=== PATIENT | male | born 2000 | race Caucasian/White ===

== ENCOUNTER 2018-02-09 09:23 | Inpatient (IN) | payer SELFPAY ==
[2018-02-09 09:54] LABS: #Eosinphils 0.1 thou/uL (0.0-0.7); #Lymphocytes 1.7 thou/uL (1.20-3.40); #Monocytes 1.3 thou/uL (0.11-0.59); #Neutrophils 15.3 thou/uL (1.40-6.50); %Basophils 0.1 % (0.0-1.0); %Eosinophils 0.4 % (0.0-10.0); %Lymphocytes 9.2 % (28.0-48.0); %Monocytes 6.9 % (0.0-4.0); %Neutrophils 83.4 % (31.0-61.0); Hemoglobin 13.7 g/dL (14.0-18.0); Mean Corpuscular HGB CONC 34.2 g/dL (32.0-36.0); Mean Corpuscular Hemoglobin 28.3 pg (25.0-35.0); Mean Corpuscular Volume 82.8 fL (78.0-98.0); Mean Platelet Volume 7.8 fL (7.4-10.4); Platelet Count 249 thou/uL (130-400); RBC Distribution Width 13.1 % (11.5-14.5); Red Blood Cell (RBC) Count 4.86 mill/uL (4.00-5.20); White Blood Cell (WBC) Count 18.3 thou/uL (4.8-10.8)
[2018-02-09 10:17] LABS: ALT (SGPT) 38 U/L (8-55); AST (SGOT) 21 U/L (10-45); Alkaline Phosphatase 74 U/L (Less than 750); Anion Gap 13 mmol/L (10-20); BUN (Urea Nitrogen) 8 mg/dL (8.4-21.0); Bilirubin, Total 0.9 mg/dL (0.2-1.2); CK (CPK) 49 U/L (30-200); Calc. Creatinine Clearance 0 mL/min (70-130); Calcium 9.2 mg/dL (7.8-10.44); Carbon Dioxide 22 mmol/L (22-29); Chloride 105 mmol/L (98-107); Estimated GFR-MDRD Greater than 90; Globulin 4.5 g/dL (2.4-3.5); Glucose 100 mg/dL (70-105); Potassium 3.7 mmol/L (3.5-5.1); Protein, Total 8.5 g/dL (6.0-8.3); Sodium 136 mmol/L (136-145)
[2018-02-09] MEDS ORDERED: Piperacillin/Tazobactam 4.5 GM VIAL ONE (10:32)
--- NOTE | 2018-02-09 10:41 | RAD ---
ONE VIEW CHEST: HISTORY: Palpitation. COMPARISON: None. FINDINGS: Normal cardiac silhouette. The lungs and pleural spaces are clear. No pneumothorax or osseous abnor malities. IMPRESSION: No acute cardiopulmonary process. POS: [facility]
[2018-02-09] MEDS ORDERED: Acetaminophen 325 MG TAB ONE (12:00)
--- NOTE | 2018-02-09 12:06 | ULT ---
VENOUS DUPLEX SONOGRAM BILATERAL LOWER EXTREMITY: HISTORY: Bilateral leg pain and edema. FINDINGS: Each common femoral vein and greater saphenous junction were evaluated along with each femoral, deep femoral, popliteal, and posterior tibial vein. There is good color and spectral Doppler flow and com pression. IMPRESSION: No sonographic evidence of deep vein thrombosis within either lower extremity. POS: [facility]
[2018-02-09] MEDS ORDERED: Senokot S 8.6-50 MG TAB PO PRN (13:20)
[2018-02-09] MEDS ORDERED: Acetaminophen 325 MG TAB PO PRN (13:20)
[2018-02-09] MEDS: Sodium Chloride 0.9% 1,000 ML IV SCH (13:50)
[2018-02-09 15:03] LABS: Lactic Acid 1.4 mmol/L (0.5-2.2)
[2018-02-09] MEDS ORDERED: Clotrimazole 1 % Cream 30 GM TUBE TOP SCH (15:30)
[2018-02-09 16:22] LABS: Troponin I Less than 0.010 ng/mL (< 0.028)
[2018-02-09] MEDS: Piperacillin/Tazobactam 3.375 GM in Sodium Chloride 0.9% 100 ML IVPB SCH ×2 (17:16→23:21)
[2018-02-09] MEDS ORDERED: Vancomycin HCl 2.5 GM in Sodium Chloride 0.9% 500 ML IVPB SCH (18:00)
[2018-02-09 19:29] LABS: Troponin I Less than 0.010 ng/mL (< 0.028)
[2018-02-09] MEDS ORDERED: Vancomycin HCl 1 GM in Premix Bag 1 BAG IVPB SCH (21:00)
[2018-02-09] MEDS: Clotrimazole 1 % Cream 30 GM TUBE TOP SCH (23:23)
--- NOTE | 2018-02-09 23:47 | HP ---
CHIEF COMPLAINT: Dizziness and worsening lower extremity erythema. HISTORY OF PRESENT ILLNESS: The patient is a 17-year-old obese male who presents to the hospital with multiple complaints. The patient states that he woke up this morning, felt very warm followed by had some dizziness and then felt that his heart racing very fast. The patient stated that he has been recently treated about 2 weeks ago with lower extremity cellulitis. The patient states that this year he has had two episodes of bilateral lower extremity cellulitis and has been treated with the same antibiotic. The patient states that he has noticed worsening swelling of his lower extremities. The patient came to the ER since he did have some palpitations and also some dizziness. In the ED when he came, he was found to be in sinus tach at 120. The patient was also found to have elevated leukocytosis with some elevated lactic acid and at this time, he was admitted into the hospital for possible sepsis. PAST MEDICAL HISTORY: The patient denies any surgical history. SOCIAL HISTORY: He denies any smoking, alcohol, or drug use. He is a full code. Lives with his parents. REVIEW OF SYSTEMS: All negative except for the ones mentioned above in the HPI. PHYSICAL EXAMINATION: VITAL SIGNS: As of the following; temperature of 99.1, heart rate of 115, respirations are 20, and blood pressure 122/64. GENERAL: He is awake, alert, and oriented x3. Does not appear in distress. CV: S1, S2 present. Tachycardia is noted, however, regular. LUNGS: Clear to auscultation. No rhonchi or wheezes noted. ABDOMEN: Soft. Bowel sounds are present x2. No pain upon palpation. EXTREMITIES: Lower extremity edema. He does have significant erythema greater on left leg compared to right. He does have significant tinea pedis. The patient's bilateral great toenails are very cursed and has significant amount of dirt in them and also has significant amount of fungal infection that is noted on bilateral feet area. His bilateral legs appear to be warm to touch and significant erythema on the left compared to the right. Pedal pulses are present bilaterally. There is no warmth around the bilateral knee area. NEUROVASCULAR: No focal deficits noted. SKIN: As I mentioned has significant erythema to the left greater than the right, and also has some fungal tinea pedis noted to bilateral feet area with bilateral great toe appear to have a significant amount of dirt around them. FAMILY HISTORY: No history of heart disease or cancer. LABORATORY DATA: Sodium of 136, potassium of 3.7, BUN of 8, and creatinine 0.90. Troponin x2 were negative. Lactic acid was initially 3.9 and 1.4. WBC is 18.3, hemoglobin of 13.7, hematocrit of 40.2, and platelets of 249. There are no bands seen. He did have a venogram, which was negative for any deep vein thrombosis. ASSESSMENT AND PLAN: The patient is a very pleasant 17-year-old male who presents to the hospital with complaints of tachycardia and also was found to have sepsis. 1. Sepsis, possible from bilateral lower extremity cellulitis. The patient stated that he has been treated about 2 weeks ago with antibiotics; however, he does not recall the name of the antibiotic. He has had this infection this year twice already and has been treated with the same antibiotic per the patient. I tried to reach his mother; however, I was unable to. I will put him on some vancomycin and Zosyn for now. Also, we will start him on some gentle hydration. I have also ordered clotrimazole topical cream for his fungal infection. 2. Sinus tachycardia. The patient did have some palpitation. I am not sure if this is secondary to his infection. The patient states that he has had this event before. May consider getting an echocardiogram. 3. The patient is obese. May probably even require sleep study as an outpatient. However, EKG did not indicate any acute abnormalities, just sinus tach and troponins x2 were negative. 4. Deep venous thrombosis prophylaxis. We will put the patient on Lovenox. Job ID: [id number]
[2018-02-10] MEDS: Piperacillin/Tazobactam 3.375 GM in Sodium Chloride 0.9% 100 ML IVPB SCH ×4 (05:33→23:33)
[2018-02-10] MEDS: Sodium Chloride 0.9% 1,000 ML IV SCH (05:34)
[2018-02-10 07:08] LABS: #Eosinphils 0.1 thou/uL (0.0-0.7); #Lymphocytes 1.4 thou/uL (1.20-3.40); #Monocytes 1.2 thou/uL (0.11-0.59); #Neutrophils 5.6 thou/uL (1.40-6.50); %Basophils 0.3 % (0.0-1.0); %Eosinophils 1.2 % (0.0-10.0); %Lymphocytes 17.3 % (28.0-48.0); %Monocytes 13.8 % (0.0-4.0); %Neutrophils 67.3 % (31.0-61.0); Mean Corpuscular HGB CONC 34.2 g/dL (32.0-36.0); Mean Corpuscular Hemoglobin 28.8 pg (25.0-35.0); Mean Corpuscular Volume 84.2 fL (78.0-98.0); Mean Platelet Volume 7.8 fL (7.4-10.4); Platelet Count 202 thou/uL (130-400); RBC Distribution Width 13.1 % (11.5-14.5); Red Blood Cell (RBC) Count 4.16 mill/uL (4.00-5.20); White Blood Cell (WBC) Count 8.3 thou/uL (4.8-10.8)
[2018-02-10 07:31] LABS: Anion Gap 11 mmol/L (10-20); BUN (Urea Nitrogen) 7 mg/dL (8.4-21.0); Calc. Creatinine Clearance 287 mL/min (70-130); Calcium 8.5 mg/dL (7.8-10.44); Carbon Dioxide 24 mmol/L (22-29); Chloride 108 mmol/L (98-107); Estimated GFR-MDRD Greater than 90; Glucose 84 mg/dL (70-105); Potassium 3.8 mmol/L (3.5-5.1); Sodium 139 mmol/L (136-145)
[2018-02-10] MEDS: Saccharomyces boulardii 250 MG CAP PO SCH (09:36)
[2018-02-10] MEDS: Clotrimazole 1 % Cream 30 GM TUBE TOP SCH ×2 (09:36→23:35)
[2018-02-10] MEDS: Enoxaparin Sodium 40 MG/0.4 ML SYRINGE SC SCH (09:37)
--- NOTE | 2018-02-10 14:38 | PDOC.PN ---
- Subjective Encounter Start Date: 02/10/18 Encounter Start Time: 14:34 Patient seen and examined, states he feels better, no new issues in the past 24 hours, no family at bedside, all questions answered. - Objective Resuscitation Status - Order Detail: 02/09/18 13:20 Resuscitation Status Routine Resuscitation Status: FULL: Full Resuscitation Vital Signs & Weight: Vital Signs (12 hours) Temp Pulse Resp BP Pulse Ox 02/10/18 11:48 98.4 F 102 H 20 133/75 02/10/18 07:05 98.2 F 93 20 124/60 97 02/10/18 05:30 98.1 F 92 24 H 126/60 100 02/10/18 02:40 98.8 F Weight Weight 319 lb 10.724 oz I&O: 02/09/18 02/10/18 02/11/18 06:59 06:59 06:59 Intake Total 3144 Balance 3144 Result Diagrams: 02/10/18 06:44 02/10/18 06:44 Phys Exam - Physical Examination Constitutional: NAD morbidly obese HEENT: PERRLA, moist MMs, sclera anicteric, TM's clear Neck: no nodes, no JVD, supple Respiratory: no wheezing, no rales, no rhonchi Cardiovascular: RRR, no significant murmur, no rub Gastrointestinal: soft, non-tender, no distention, positive bowel sounds Musculoskeletal: pulses present, edema present (1+) Neurological: non-focal, normal sensation Deviation from normal: rash on face -: toe nails with fungus? Dx/Plan (1) Cellulitis Code(s): L03.90 - CELLULITIS, UNSPECIFIED Status: Acute (2) Morbid obesity Code(s): E66.01 - MORBID (SEVERE) OBESITY DUE TO EXCESS CALORIES Status: Acute (3) Rash Code(s): R21 - RASH AND OTHER NONSPECIFIC SKIN ERUPTION Status: Acute - Plan * Consult to podiatry * MRI of B/L feet to check for osteo, cont current antimicrobials * patient states he has never cut his toe nails before and that he didn't know he was supposed to, states that he also didn't realize he was so heavy and that food intake causes weight gain. * This patient appears to not be aware of any dietary risk factors to the human body, I had a lengthy discussion with him regarding the fact that he's close to 320lbs at the age of 17 and high risk for DM II, HTN, CHF, CAD, Stroke, all of which he states he was not aware of * States that he eats chips mainly and whatever food is cooked at home. * Will place patient on a cardiac diet in the hospital and calorie restrict to 1500 calorie diet * start metformin 500mg po BID * Continue current plan otherwise w/o any changes * case and plan d/w patient at length, no family at bedside, all questions answered
[2018-02-10 17:08] LABS: Vancomycin, Trough 20.2 ug/mL
[2018-02-10] MEDS: metFORMIN 500 MG TAB PO SCH (17:43)
[2018-02-10] MEDS ORDERED: Vancomycin HCl 500 MG in Sodium Chloride 0.9% 100 ML IVPB SCH (21:00)
[2018-02-11] MEDS: Sodium Chloride 0.9% 1,000 ML IV SCH ×3 (04:02→21:23)
[2018-02-11] MEDS: Piperacillin/Tazobactam 3.375 GM in Sodium Chloride 0.9% 100 ML IVPB SCH ×4 (06:16→23:22)
[2018-02-11] MEDS: metFORMIN 500 MG TAB PO SCH ×2 (09:40→16:58)
[2018-02-11] MEDS: Saccharomyces boulardii 250 MG CAP PO SCH (09:41)
[2018-02-11] MEDS: Clotrimazole 1 % Cream 30 GM TUBE TOP SCH ×2 (09:41→21:20)
[2018-02-11] MEDS: Enoxaparin Sodium 40 MG/0.4 ML SYRINGE SC SCH (09:41)
--- NOTE | 2018-02-11 11:09 | PDOC.PN ---
- Subjective Encounter Start Date: 02/11/18 Encounter Start Time: 11:07 Patient seen and examined, no new issues or complaints, all questions answered, no familiy at bedside. - Objective Resuscitation Status - Order Detail: 02/09/18 13:20 Resuscitation Status Routine Resuscitation Status: FULL: Full Resuscitation Vital Signs & Weight: Vital Signs (12 hours) Temp Pulse Resp BP Pulse Ox 02/11/18 08:00 98.8 F 93 20 129/69 98 02/10/18 23:30 98.3 F 92 20 121/69 97 Weight Weight 319 lb 10.724 oz I&O: 02/10/18 02/11/18 02/12/18 06:59 06:59 06:59 Intake Total 3144 3579 Balance 3144 3579 Result Diagrams: 02/10/18 06:44 02/10/18 06:44 Phys Exam - Physical Examination Constitutional: NAD obese HEENT: PERRLA, moist MMs, sclera anicteric Neck: no nodes, no JVD, supple Respiratory: no wheezing, no rales, no rhonchi Cardiovascular: RRR, no significant murmur, no rub Gastrointestinal: soft, non-tender, no distention Musculoskeletal: pulses present, edema present (trace) Psychiatric: normal affect, A&O x 3 Deviation from normal: rash on face -: B/L toe nail fungal infection and enlarged toe nails Dx/Plan (1) Cellulitis Code(s): L03.90 - CELLULITIS, UNSPECIFIED Status: Acute (2) Morbid obesity Code(s): E66.01 - MORBID (SEVERE) OBESITY DUE TO EXCESS CALORIES Status: Acute (3) Rash Code(s): R21 - RASH AND OTHER NONSPECIFIC SKIN ERUPTION Status: Acute - Plan * MRI pending * podiatry evaluation pending * cont abx and current plan of care * proper hygine and weigh tloss discussed * started on metformin for obesity purposes, drug should not cause any hypoglycemia as it does not increse insulin production simply increases tissue sensitivity to the insulin already present in his body * case and plan d/w patient length, he understood and agreed with this plan.
--- NOTE | 2018-02-11 15:11 | MRI ---
MRI LEFT FOREFOOT WITHOUT CONTRAST: Date: 02/11/18 HISTORY: Concern for osteomyelitis. COMPARISON: None. FINDINGS: Bones: On the T1-weighted imaging sequence, there are no areas of loss of normal marrow signal to suggest os teomyelitis. No edema is seen on the STIR images. Mild degenerative disease of the great toe interphalangeal joint. No acute fracture or malalignment. Tendons: No significant tenosynovitis. Soft Tissues: There is extensive dorsal edema of the midfoot within the subcutaneous soft tissues. This insinuates throughout the fat. Muscles: Muscle signal and bulk normal. IMPRESSION: Extensive dorsal subcutaneous soft tissue edema of the midfoot. Differential includes cellulitis, luke ous insufficiency, and lymphedema. No evidence of osteomyelitis. POS: [facility]
--- NOTE | 2018-02-11 15:13 | MRI ---
MRI RIGHT FOREFOOT WITHOUT CONTRAST: Date: 02/11/18 HISTORY: Evaluate for osteomyelitis. Swelling. COMPARISON: None. FINDINGS: Bones: On the T1-weighted imaging sequence, there were no areas of loss of normal marrow signal to suggest o steomyelitis. No abnormality seen on the STIR images. Muscles: Normal muscle signal and bulk. Tendons: No significant tenosynovitis. Soft Tissues: There is extensive dorsal edema of the midfoot with a reticular pattern. IMPRESSION: Dorsal fat pad edema of the midfoot superficial subcutaneous soft tissues. No osteomyelitis. Cellulit is, lymphedema, and venous insufficiency are possible causes. POS: [facility]
[2018-02-11 20:07] LABS: Vancomycin, Trough 31.3 ug/mL
[2018-02-12] MEDS: Sodium Chloride 0.9% 1,000 ML IV SCH (03:43)
[2018-02-12] MEDS: Piperacillin/Tazobactam 3.375 GM in Sodium Chloride 0.9% 100 ML IVPB SCH ×2 (05:52→11:24)
[2018-02-12 07:38] LABS: #Basophils 0.1 thou/uL (0.0-0.2); #Eosinphils 0.2 thou/uL (0.0-0.7); #Lymphocytes 1.6 thou/uL (1.20-3.40); #Monocytes 0.6 thou/uL (0.11-0.59); #Neutrophils 6.1 thou/uL (1.40-6.50); %Basophils 0.7 % (0.0-1.0); %Eosinophils 1.8 % (0.0-10.0); %Lymphocytes 18.3 % (28.0-48.0); %Monocytes 7.1 % (0.0-4.0); %Neutrophils 72.1 % (31.0-61.0); Hemoglobin 12.8 g/dL (14.0-18.0); Mean Corpuscular HGB CONC 33.3 g/dL (32.0-36.0); Mean Corpuscular Hemoglobin 28.2 pg (25.0-35.0); Mean Corpuscular Volume 84.6 fL (78.0-98.0); Mean Platelet Volume 7.9 fL (7.4-10.4); Platelet Count 246 thou/uL (130-400); Red Blood Cell (RBC) Count 4.56 mill/uL (4.00-5.20); White Blood Cell (WBC) Count 8.5 thou/uL (4.8-10.8)
[2018-02-12 07:55] LABS: Vancomycin, Random 9.2 ug/mL (See Comment)
[2018-02-12 07:56] LABS: Anion Gap 15 mmol/L (10-20); BUN (Urea Nitrogen) 7 mg/dL (8.4-21.0); Calc. Creatinine Clearance 244 mL/min (70-130); Calcium 9.2 mg/dL (7.8-10.44); Carbon Dioxide 22 mmol/L (22-29); Chloride 107 mmol/L (98-107); Estimated GFR-MDRD Greater than 90; Glucose 89 mg/dL (70-105); Potassium 3.7 mmol/L (3.5-5.1); Sodium 140 mmol/L (136-145)
[2018-02-12] MEDS: metFORMIN 500 MG TAB PO SCH (08:50)
[2018-02-12] MEDS: Saccharomyces boulardii 250 MG CAP PO SCH (08:50)
[2018-02-12] MEDS: Clotrimazole 1 % Cream 30 GM TUBE TOP SCH (08:50)
[2018-02-12] MEDS: Enoxaparin Sodium 40 MG/0.4 ML SYRINGE SC SCH (08:50)
[2018-02-12] MEDS ORDERED: Vancomycin HCl 1 GM in Premix Bag 1 BAG IVPB SCH (09:00)
--- NOTE | 2018-02-12 12:11 | PDOC.EVN ---
Event Note - Event Note Event Note: DC SUMMARY [id number]
--- NOTE | 2018-02-12 14:04 | DIS ---
DATE OF ADMISSION: 02/09/2018 DATE OF DISCHARGE: 02/12/2018 ADMITTING DIAGNOSES: Cellulitis, obesity, and facial rash. DISCHARGE DIAGNOSES: Cellulitis, resolving; obesity, stable; rash, resolved. PERTINENT FINDINGS AND HOSPITAL COURSE: A 17-year-old morbidly obese male, who was admitted to the hospital with toenails that were curved upwards and cellulitis infection on both thumbs of his feet. BMI was found to be 46. The patient was given vancomycin IV for 3 days with significant improvement in his white count as well as his condition. The patient had resolution of symptoms, had evaluation done by Podiatry and Internal Medicine, was advised to finish the course of antibiotics and follow up with PCP and Podiatry outpatient. Significant weight loss also was heavily advised and counseled. The patient upon at time of discharge was stable, stated that he had no more complaints or symptoms, denied any fever or chills, stated that he was feeling ready to go home. The patient was given a prescription for Augmentin to be taken for every 7 days and also proper hygiene of toenails was discussed with the patient. Case and plan discussed with the patient at length. He understood and agreed with this plan. DISPOSITION: Home. MEDICATIONS: See MAR. ACTIVITY: As tolerated with assistance as needed. DIET: Low-fat, low-calorie, high-fiber, weight loss diet recommended. CONDITION: Stable. PROGNOSIS: Good. Once again, case and plan discussed with the patient at length, he understood and agreed with this plan. Job ID: [id number]
[2018-02-12 15:57] VITALS: BP 140/85; TEMP 98.4
--- NOTE | 2018-02-16 08:53 | PQF ---
Nathan IbrahimRAMON [id number] SURG [id number] CLINICAL DOCUMENTATION CLARIFICATION FORM: POST DISCHARGE DATE: 02/16/2018 ATTN: Dr. Lopez Please exercise your independent, professional judgement in responding to the clarification form. Clinical indicators are provided on the bottom of this form for your review Please check appropriate box(s) to clarify if the following diagnosis has been ruled in or ruled out: Sepsis [ x ] Ruled in diagnosis [ x ] Continue to treat [ ] Resolved [ ] Ruled out diagnosis [ ] Cannot rule out diagnosis [ ] Other diagnosis (please specify) [ ] Unable to determine In addition, please specify: Present on Admission (POA): [ ] Yes [ ] No [ ] Unable to determine For continuity of documentation, please document condition throughout progress notes and discharge summary. Thank You. CLINICAL INDICATORS - SIGNS / SYMPTOMS / LABS Per H&P: Sinus tachycardia at 120. Elevated leukocytosis with elevated lactic acid. Sepsis, possible from bilateral lower extremity cellulitis. RISK FACTORS Bilateral lower extremity cellulitis. TREATMENTS IV Vancomycin. (This form is maintained as a part of the permanent medical record) 2014 [employer] All Rights Reserved Ewa [email or web address] [phone] MTDD
--- NOTE | 2018-02-21 22:59 | EKG ---
Test Reason : Blood Pressure : / mmHG Vent. Rate : 132 BPM Atrial Rate : 132 BPM P-R Int : 124 ms QRS Dur : 086 ms QT Int : 294 ms P-R-T Axes : 041 048 014 degrees QTc Int : 435 ms Sinus tachycardia Otherwise normal ECG Confirmed by BRIAN BAZAN, DAWOOD ([id number]), science editor CAMILLE CHASE ([id number]) on 02/21/2018 10:58:40 PM Referred By: Confirmed By:DAWOOD TORRES MD
== END 2018-02-12 16:56 | disposition home or self-care (01) | DRG 872 ==
LOC: ERS 09:23 → ERHOLD 10:47 → 3SE 13:16 → SURG A 02-11 19:13
PROVIDERS: ADMIT Internal Medicine; ATTEND Internal Medicine
DX: A41.9 Sepsis, unspecified organism (principal); L03.116 Cellulitis of left lower limb; L03.115 Cellulitis of right lower limb; E66.9 Obesity, unspecified; B35.3 Tinea pedis; E66.01 Morbid (severe) obesity due to excess calories
CPT/HCPCS: 36415; 36416; 71045; 80048; 80053; 80202; 82550; 83605; 84484; 85025; 87040; 93005; 93970; 96365; 96367; J1650; J2543; J3370; J7050

== ENCOUNTER 2018-09-19 22:01 | Emergency (ER) | payer SELFPAY ==
--- NOTE | 2018-09-19 22:49 | RAD ---
XR Chest 1 View Portable History: Palpitations Comparison: Radiograph February 09, 2018 Findings: Lungs are clear. No pneumothorax or effusion. Cardiac silhouette and mediastinal contours a re within normal limits. No acute osseous abnormality. Impression: No acute intrathoracic abnormality.
[2018-09-19 23:06] LABS: #Basophils 0.1 thou/uL (0.0-0.2); #Eosinphils 0.2 thou/uL (0.0-0.7); #Lymphocytes 1.9 thou/uL (1.20-3.40); #Monocytes 0.7 thou/uL (0.11-0.59); #Neutrophils 7.5 thou/uL (1.40-6.50); %Basophils 0.5 % (0.0-1.0); %Eosinophils 1.5 % (0.0-10.0); %Lymphocytes 18.7 % (28.0-48.0); %Monocytes 6.5 % (0.0-4.0); %Neutrophils 72.7 % (31.0-61.0); Hemoglobin 14.9 g/dL (14.0-18.0); Mean Corpuscular HGB CONC 33.6 g/dL (32.0-36.0); Mean Corpuscular Hemoglobin 28.4 pg (25.0-35.0); Mean Corpuscular Volume 84.5 fL (78.0-98.0); Mean Platelet Volume 8.1 fL (7.4-10.4); Platelet Count 270 thou/uL (130-400); RBC Distribution Width 13.1 % (11.5-14.5); Red Blood Cell (RBC) Count 5.26 mill/uL (4.00-5.20); White Blood Cell (WBC) Count 10.3 thou/uL (4.8-10.8)
[2018-09-19 23:23] LABS: ALT (SGPT) 54 U/L (8-55); AST (SGOT) 31 U/L (5-34); Albumin 4.3 g/dL (3.5-5.0); Alkaline Phosphatase 74 U/L (Less than 750); Anion Gap 13 mmol/L (10-20); BUN (Urea Nitrogen) 7 mg/dL (8.9-20.6); Bilirubin, Total 0.4 mg/dL (0.2-1.2); CK (CPK) 64 U/L (30-200); Calc. Creatinine Clearance 0 mL/min (70-130); Calcium 9.2 mg/dL (7.8-10.44); Carbon Dioxide 25 mmol/L (22-29); Chloride 104 mmol/L (98-107); Estimated GFR-MDRD Greater than 90; Glucose 98 mg/dL (70-105); Lipase 14 U/L (8-78); Protein, Total 8.3 g/dL (6.0-8.3); Sodium 138 mmol/L (136-145)
== END 2018-09-19 23:34 | disposition home or self-care (01) ==
LOC: ERS 22:01
DX: R07.89 Other chest pain (principal); R00.2 Palpitations
CPT/HCPCS: 36415; 71045; 80053; 82550; 83690; 84443; 84484; 85025; 85379; 93005

== ENCOUNTER 2018-12-23 20:30 | Emergency (ER) | payer SELFPAY ==
--- NOTE | 2018-12-23 21:16 | RAD ---
Right hand 3 views HISTORY: Right hand injury. FINDINGS: Nondisplaced oblique fracture of the fifth metacarpal neck with mild apex posterior and med ial angulation. No evidence of intra-articular extension. Joint spaces are preserved. Ulnar negative variant. IMPRESSION: Mildly angulated boxer's fracture right fifth metacarpal neck.
[2018-12-23] MEDS ORDERED: HYDROcodone/Acetaminophen 5/325 mg Tablet ONE (21:39)
== END 2018-12-23 21:45 | disposition home or self-care (01) ==
LOC: ERS 20:30
DX: S62.366A Nondisplaced fracture of neck of fifth metacarpal bone, right hand, initial encounter for closed fracture (principal); W22.01XA Walked into wall, initial encounter

== ENCOUNTER 2019-01-10 17:53 | Emergency (ER) | payer SELFPAY ==
--- NOTE | 2019-01-10 18:48 | RAD ---
TWO VIEW CHEST: History: Shortness of breath. FINDINGS: Lungs appear clear. Heart and mediastinum appear normal. Osseous structures normal. IMPRESSION: Negative chest. POS: [facility]
[2019-01-10 21:04] LABS: #Eosinphils 0.2 thou/uL (0.0-0.7); #Lymphocytes 1.9 thou/uL (1.20-3.40); #Monocytes 0.7 thou/uL (0.11-0.59); #Neutrophils 5.9 thou/uL (1.40-6.50); %Basophils 0.5 % (0.0-1.0); %Eosinophils 1.9 % (0.0-10.0); %Lymphocytes 22.2 % (28.0-48.0); %Monocytes 7.7 % (0.0-4.0); %Neutrophils 67.8 % (31.0-61.0); Hemoglobin 15.3 g/dL (14.0-18.0); Mean Corpuscular HGB CONC 34.7 g/dL (32.0-36.0); Mean Corpuscular Hemoglobin 29.2 pg (25.0-35.0); Mean Corpuscular Volume 84.2 fL (78.0-98.0); Mean Platelet Volume 7.9 fL (7.4-10.4); Platelet Count 279 thou/uL (130-400); RBC Distribution Width 12.6 % (11.5-14.5); Red Blood Cell (RBC) Count 5.23 mill/uL (4.00-5.20); White Blood Cell (WBC) Count 8.7 thou/uL (4.8-10.8)
[2019-01-10 21:26] LABS: ALT (SGPT) 92 U/L (8-55); AST (SGOT) 48 U/L (5-34); Albumin 4.4 g/dL (3.5-5.0); Alkaline Phosphatase 81 U/L (50-130); Anion Gap 12 mmol/L (10-20); BUN (Urea Nitrogen) 7 mg/dL (8.9-20.6); Bilirubin, Total 0.7 mg/dL (0.2-1.2); CK (CPK) 61 U/L (30-200); Calc. Creatinine Clearance 0 mL/min (70-130); Calcium 9.5 mg/dL (7.8-10.44); Carbon Dioxide 27 mmol/L (22-29); Chloride 104 mmol/L (98-107); Estimated GFR-MDRD Greater than 90; Globulin 3.7 g/dL (2.4-3.5); Glucose 84 mg/dL (70-105); Potassium 4.1 mmol/L (3.5-5.1); Protein, Total 8.1 g/dL (6.0-8.3); Sodium 139 mmol/L (136-145)
== END 2019-01-10 22:05 | disposition home or self-care (01) ==
LOC: ERS 17:53
DX: R06.02 Shortness of breath (principal); I10 Essential (primary) hypertension
CPT/HCPCS: 36415; 71046; 80053; 82550; 84484; 85025; 85379; 93005

== ENCOUNTER 2021-01-19 20:09 | Emergency (ER) | payer SELFPAY ==
[2021-01-19 21:14] LABS: #Basophils 0.1 thou/uL (0.0-0.2); #Eosinphils 0.2 thou/uL (0.0-0.7); #Lymphocytes 1.8 thou/uL (1.20-3.40); #Monocytes 0.5 thou/uL (0.11-0.59); %Basophils 0.8 % (0.0-1.0); %Eosinophils 2.5 % (0.0-10.0); %Lymphocytes 23.9 % (21.0-51.0); %Monocytes 6.6 % (0.0-10.0); %Neutrophils 66.2 % (42.0-75.0); Hemoglobin 15.7 g/dL (14.0-18.0); Mean Corpuscular HGB CONC 34.4 g/dL (32.0-36.0); Mean Corpuscular Hemoglobin 30.7 pg (27.0-31.0); Mean Corpuscular Volume 89.3 fL (78.0-98.0); Mean Platelet Volume 8.1 fL (7.4-10.4); Platelet Count 196 thou/uL (130-400); RBC Distribution Width 12.8 % (11.5-14.5); Red Blood Cell (RBC) Count 5.13 mill/uL (4.70-6.10); White Blood Cell (WBC) Count 7.6 thou/uL (4.8-10.8)
[2021-01-19 21:38] LABS: ALT (SGPT) 15 U/L (8-55); AST (SGOT) 16 U/L (5-34); Albumin 4.4 g/dL (3.5-5.0); Alkaline Phosphatase 67 U/L (40-110); Anion Gap 11 mmol/L (10-20); BUN (Urea Nitrogen) 15 mg/dL (8.9-20.6); Bilirubin, Total 0.6 mg/dL (0.2-1.2); Calc. Creatinine Clearance 0 mL/min (70-130); Calcium 9.8 mg/dL (7.8-10.44); Carbon Dioxide 27 mmol/L (22-29); Chloride 106 mmol/L (98-107); Globulin 3.4 g/dL (2.4-3.5); Glucose 95 mg/dL (70-105); Potassium 3.8 mmol/L (3.5-5.1); Protein, Total 7.8 g/dL (6.0-8.3); Sodium 140 mmol/L (136-145)
[2021-01-19] MEDS ORDERED: Albuterol 200 PUFF (6.7GM INHALER) ONE (22:59)
[2021-01-19 23:03] LABS: SARS-CoV-2 NAA Rapid Test Not Detected (NotDetected)
[2021-01-19 23:32] LABS: Troponin I Less than 0.010 ng/mL (< 0.028)
== END 2021-01-19 23:58 | disposition home or self-care (01) ==
LOC: ERS 20:09
DX: R07.9 Chest pain, unspecified (principal); R06.00 Dyspnea, unspecified; I10 Essential (primary) hypertension; F17.210 Nicotine dependence, cigarettes, uncomplicated; Z20.822 Contact with and (suspected) exposure to COVID-19
CPT/HCPCS: 0240U; 36415; 71045; 80053; 84484; 85025; 93005

== ENCOUNTER 2021-03-17 02:27 | Emergency (ER) | payer SELFPAY | END 2021-03-17 03:30 | disposition home or self-care (01) | LOC: ERS 02:27 | DX: S70.11XA Contusion of right thigh, initial encounter (principal); S50.11XA Contusion of right forearm, initial encounter; I10 Essential (primary) hypertension; F17.210 Nicotine dependence, cigarettes, uncomplicated; Z79.899 Other long term (current) drug therapy; W19.XXXA Unspecified fall, initial encounter | CPT/HCPCS: 99283 ==

== ENCOUNTER 2023-04-18 14:26 | Emergency (ER) | payer SELFPAY ==
[2023-04-18 16:00] LABS: Influenza A by NAA Not Detected (NotDetected); Influenza B by NAA Not Detected (NotDetected); SARS-CoV-2 NAA Rapid Test Not Detected (NotDetected)
== END 2023-04-18 16:22 | disposition home or self-care (01) ==
LOC: ERS 14:26
DX: J06.9 Acute upper respiratory infection, unspecified (principal); I10 Essential (primary) hypertension; Z55.6 Problems related to health literacy; Z75.3 Unavailability and inaccessibility of health-care facilities; Z87.891 Personal history of nicotine dependence
CPT/HCPCS: 99283